=== PATIENT | male | born 1940 | race Caucasian/White ===

== ENCOUNTER 2017-04-21 20:45 | Emergency (ER) | payer OTHER ==
[2017-04-21] MEDS ORDERED: NS 1000 ML 1,000 ML ONE (21:05)
[2017-04-21] MEDS ORDERED: ZOFRAN INJ 4 MG VIAL ONE (21:05)
[2017-04-21] MEDS ORDERED: TORADOL 30 MG VIAL ONE (21:06)
[2017-04-21 21:07] VITALS: BMI 25.6
[2017-04-21] MEDS ORDERED: NS 1000 ML 1,000 ML IV ONE (21:11)
[2017-04-21] MEDS ORDERED: ZOFRAN INJ 4 MG VIAL IVP ONE (21:11)
[2017-04-21] MEDS ORDERED: TORADOL 30 MG VIAL IVP ONE (21:11)
--- NOTE | 2017-04-21 21:31 | DR.GENAD ---
HPI - PCP Primary Care Physician: nfd - HPI Comment HPI Comment: PATIENT WITH LEFT FLANK PAIN WITH NAUSEA, VOMTING. PAIN WORSE THIS EVENING. HISTORY KIDNEY STONES. NO FEVER. - Complaint/Symptoms Chief Complaint Doctors Comments: LEFT FLANK PAIN TIMES ONE DAY. Chief Complaint:: lt flank pain and vomiting since last night pain really got bad 1 hour ago - Nurses notes reviewed Nurses Notes Review: Yes - Source History Provided: Patient - Mode of Arrival Mode of Arrival: Ambulatory - Timing Onset of Chief Complaint: 04/20/17 Came on: Suddenly - Duration Duration: Constant Duration: Days - Severity Severity: Moderate PMH - PMH Past Medical History: Yes Past Medical History: COPD, Hypertension Past Medical History Comment: enlarged prostate Past Surgical History: Yes Past Surgical History Comment: hernia repair hemmorroidectomy - Family History History of Family Medical Conditions: Yes Family Medical History: Diabetes Mellitus, Cancer - Social History Do you use any recreational Drugs:: No Lives With: Family Lives Where: Home - infectious screening In the last 2 months have you had wt loss of >10#?: NO Have you had fever, night sweats or hemotysis?: No Have you traveled outside the country in the last 6 months?: No Isolation: Standard ROS - Review of Systems Constitutional: No Symptoms Reported Eyes: No Symptoms Reported ENTM: No Symptoms Reported Respiratoy: No Symptoms Reported Cardiovascular: No Symptoms Reported Gastrointestinal/Abdominal: No Symptoms Reported Genitourinary: Other (decrease output). negative: Hematuria Neurological: No Symptoms Reported Musculoskeletal: Other (flank paih, lt) Integumentary: No Symptoms Reported Hematologic/Lymphatic: Easy Bruising Endocrine: No Symptoms Reported All Other Systems: Reviewed and Negative PE - Vital Signs Vitals: Temperature 98.6 F Pulse Rate 48 Respiratory Rate 18 Blood Pressure [Left Arm] 176/80 Blood Pressure 162/72 O2 Sat by Pulse Oximetry 100 - General Limitations: No Limitations General Appearance: Alert - Head Head Exam: Normal Inspection - Eyes Eye exam: Normal Appearance - ENT ENT Exam: Normal External Ear Exam External Ear Exam: Normal External Inspection TM/Canal Exam: Bilateral Normal Nose Exam: Normal Nose Exam Mouth Exam: Normal Inspection Throat Exam: Normal Inspection - Neck Neck Exam: Trachea Midline - Chest Chest Inspection: Symmetric Chest Wall Rise - Respiratory Respiratory Exam: Normal Lung Sounds Bilat Respiratory Exam: Bilateral Clear to Auscultation - Cardiovascular Cardiovascular Exam: Regular Rate, Normal Rhythm, Normal Heart Sounds - Abdominal Exam Abdominal Exam: Normal Bowel Sounds, Soft. negative: Tenderness - Extremities Extremities Exam: Normal Inspection - Back Back Exam: (L) CVA Tenderness - Neurologic Neurological Exam: Alert, Oriented X3 - Psychiatric Psychiatric Exam: Normal Affect, Normal Mood - Skin Skin Exam: Normal Color MDM - Additional Information Additional Information Obtained From: Family - Differential Diagnosis Differential Diagnosis: KIDNEY STONE, UTI, MUSCULOSKELETAL PAIN, ATHRITIS Course - Treatment Treatment: SEE ORDERS. - Education/Counseling Education/Counseling: Patient, Education Educated On: Treatment, Diagnosis, Needs for Follow Up ROR - Labs Reviewed Laboratory Results Reviewed?: Yes Result Diagrams: 04/21/17 21:50 04/21/17 21:50 Laboratory: 04/21/17 23:39 Urine,Clean Catch Urine Culture - Final WBC 7.2 X10^3/uL (3.6-10.0) 04/21/17 21:50 RBC 4.43 X10^6/uL (4.7-6.0) L 04/21/17 21:50 Hgb 13.4 g/dL (13.5-18.0) L 04/21/17 21:50 Hct 39.1 % (42.0-54.0) L 04/21/17 21:50 MCV 88.3 fL (80.0-100.0) 04/21/17 21:50 MCH 30.2 pg (27.0-34.0) 04/21/17 21:50 MCHC 34.1 g/dL (33.0-35.0) 04/21/17 21:50 RDW 13.6 % (11.6-16.5) 04/21/17 21:50 Plt Count 186 X10^3/uL (150.0-450.0) 04/21/17 21:50 MPV 8.3 fL (7.4-11.0) 04/21/17 21:50 Neut % 77.0 % (42.0-75.0) H 04/21/17 21:50 Lymph % 12.3 % (21.0-51.0) L 04/21/17 21:50 [place] % 8.4 % (0.0-13.0) 04/21/17 21:50 Eos % 1.3 % (0.9-2.9) 04/21/17 21:50 Baso % 1.0 % (0.2-1.0) 04/21/17 21:50 Neut # 5.6 x10^3/uL (2.2-4.8) H 04/21/17 21:50 Lymph # 0.9 X10^3/uL (1.3-2.9) L 04/21/17 21:50 [place] # 0.6 x10^3/uL (0.3-0.8) 04/21/17 21:50 Eos # 0.1 x10^3/uL (0.0-0.2) 04/21/17 21:50 Baso # 0.1 X10^3/uL (0.0-0.1) 04/21/17 21:50 Absolute Nucleated RBC 0.1 /100WBC 04/21/17 21:50 Sodium 141 mmol/L (136-145) 04/21/17 21:50 Corrected Sodium 142 mmol/L (136-145) 04/21/17 21:50 Potassium 4.3 mmol/L (3.5-5.1) 04/21/17 21:50 Chloride 109 mmol/L (98-107) H 04/21/17 21:50 Carbon Dioxide 27.9 mmol/L (21-32) 04/21/17 21:50 BUN 26 mg/dL (7-18) H 04/21/17 21:50 Creatinine 1.26 mg/dL (0.70-1.30) 04/21/17 21:50 Est GFR (MDRD) Af Amer > 60 (>60) 04/21/17 21:50 Est GFR (MDRD) Non-Af 59 (>60) 04/21/17 21:50 Glucose 126 mg/dL (65-99) H 04/21/17 21:50 Calcium 7.9 mg/dL (8.5-10.1) L 04/21/17 21:50 Corrected Calcium 8.5 mg/dL (8.5-10.1) 04/21/17 21:50 Total Bilirubin 0.40 mg/dL (0.2-1.0) 04/21/17 21:50 AST 28 Units/L (15-37) 04/21/17 21:50 ALT 26 Units/L (12-78) 04/21/17 21:50 Alkaline Phosphatase 39 Units/L (46-116) L 04/21/17 21:50 Total Protein 6.4 g/dL (6.4-8.2) 04/21/17 21:50 Albumin 3.2 g/dL (3.4-5.0) L 04/21/17 21:50 Globulin 3.2 g/dL (2.5-4.5) 04/21/17 21:50 Albumin/Globulin Ratio 1.0 Ratio (1.1-2.1) L 04/21/17 21:50 Specimen Type Clean catch urine 04/21/17 23:39 Urine Color Yellow (YELLOW) 04/21/17 23:39 Urine Appearance Clear (CLEAR) 04/21/17 23:39 Urine pH 5.0 (5.0 - 8.0) 04/21/17 23:39 Ur Specific [place] 1.020 (1.000-1.030) 04/21/17 23:39 Urine Protein 1+ (NEGATIVE) 04/21/17 23:39 Urine Glucose (UA) Negative (NEGATIVE) 04/21/17 23:39 Urine Ketones Negative (NEGATIVE) 04/21/17 23:39 Urine Occult Blood 3+ (NEGATIVE) 04/21/17 23:39 Urine Nitrite Negative (NEGATIVE) 04/21/17 23:39 Urine Bilirubin Negative (NEGATIVE) 04/21/17 23:39 Urine Urobilinogen Normal (NORMAL) 04/21/17 23:39 Ur Leukocyte Esterase 1+ (NEGATIVE) 04/21/17 23:39 Urine RBC 10-15 /HPF (NEGATIVE) 04/21/17 23:39 Urine WBC 6-8 /HPF (NEGATIVE) 04/21/17 23:39 Ur Squamous Epith Cells Rare /HPF (NEGATIVE) 04/21/17 23:39 Urine Bacteria 1+ /HPF (NEGATIVE) 04/21/17 23:39 Urine Mucus Many /HPF (NEGATIVE) 04/21/17 23:39 Ur Culture Indicated? Yes/culture set up 04/21/17 23:39 - XRAY XRAY Interpreted by: Radiologist XRAY Findings: REPORT DISCUSS WITH PATIENT AND FAMILY. - Diagnosis Discharge Problem: Left flank pain, Kidney stone, Parapelvic renal cyst - Discharge Plan Disposition: 01 HOME, SELF-CARE Condition: Stable Prescriptions: Ciprofloxacin HCl [CIPRO 500 MG TAB *] 500 mg PO Q12H #20 tab Hydrocodone-Acet 5 mg/325 mg [[place] 5/325 mg Tab] 1 tab PO Q8H PRN #12 tab PRN Reason: Ondansetron HCl [Zofran Tab 4 mg] 4 mg PO Q8H PRN #12 tab PRN Reason: Nausea/Vomiting - Follow ups/Referrals Follow ups/Referrals: NFD,None [Primary Care Provider] - 2 days - Instructions Instructions: Kidney Stones, [id number], Flank Pain, [id number], Urinary Tract Infection, Adult, [id number], Cholelithiasis Additional Instructions: SEE YOUR UROLOGIST IN AM. RETURN TO ED IF WORSE.
[2017-04-21 21:57] LABS: BASOPHILS # (AUTO) 0.1 X10^3/uL (0.0-0.1); EOSINOPHILS # (AUTO) 0.1 x10^3/uL (0.0-0.2); EOSINOPHILS % (AUTO) 1.3 % (0.9-2.9); HEMATOCRIT 39.1 % (42.0-54.0); HEMOGLOBIN 13.4 g/dL (13.5-18.0); LYMPHOCYTES # (AUTO) 0.9 X10^3/uL (1.3-2.9); LYMPHOCYTES % (AUTO) 12.3 % (21.0-51.0); MEAN CORPUSCULAR HEMOGLOBIN 30.2 pg (27.0-34.0); MEAN CORPUSCULAR HGB CONC 34.1 g/dL (33.0-35.0); MEAN CORPUSCULAR VOLUME 88.3 fL (80.0-100.0); MEAN PLATELET VOLUME 8.3 fL (7.4-11.0); MONOCYTES # (AUTO) 0.6 x10^3/uL (0.3-0.8); MONOCYTES % (AUTO) 8.4 % (0.0-13.0); NEUTROPHILS # (AUTO) 5.6 x10^3/uL (2.2-4.8); PLATELET COUNT 186 X10^3/uL (150.0-450.0); RED BLOOD COUNT 4.43 X10^6/uL (4.7-6.0); RED CELL DISTRIBUTION WIDTH 13.6 % (11.6-16.5); WHITE BLOOD COUNT 7.2 X10^3/uL (3.6-10.0)
[2017-04-21 22:12] LABS: ALANINE AMINOTRANSFERASE 26 Units/L (12-78); ALBUMIN 3.2 g/dL (3.4-5.0); ALKALINE PHOSPHATASE 39 Units/L (46-116); ASPARTATE AMINO TRANSFERASE 28 Units/L (15-37); BLOOD UREA NITROGEN 26 mg/dL (7-18); CALCIUM 7.9 mg/dL (8.5-10.1); CARBON DIOXIDE 27.9 mmol/L (21-32); CHLORIDE 109 mmol/L (98-107); COR CA(FOR HYPOALB) 8.5 mg/dL (8.5-10.1); COR NA(FOR HYPERGLY) 142 mmol/L (136-145); CREATININE 1.26 mg/dL (0.70-1.30); GLUCOSE 126 mg/dL (65-99); SODIUM 141 mmol/L (136-145); TOTAL PROTEIN 6.4 g/dL (6.4-8.2); eGFR BLACK RACES > 60 (>60); eGFR NON BLACK RACES 59 (>60)
--- NOTE | 2017-04-21 22:46 | CT ---
EXAM: CT ABDOMEN AND PELVIS WITHOUT CONTRAST INDICATION: Left flank pain COMPARISION: No priors available for comparison TECHNIQUE: Axial CT examination of the abdomen and pelvis was performed without intravenous contrast. Coronal a nd sagittal reconstructions were created using the axial data. FINDINGS: The lung bases are clear. The liver, spleen, pancreas, and adrenal glands are normal. The right kidn ey appears unremarkable . There are multiple parapelvic cysts on the left . There is mild left hydro nephrosis and hydroureter . No ureteral stone identified. There is cholelithiasis. There is no evide nce of biliary ductal dilatation. The aorta and inferior vena cava are normal in caliber. The bowel loops are nonobstructed. No abnormal mass, lymphadenopathy, or fluid collection. Urinary bladder is normal. The regional skeleton is intact. IMPRESSION: There is cholelithiasis. There is mild left hydronephrosis and hydroureter in multiple parapelvic cy sts in the left kidney. No ureteral stone is identified. Changes may be secondary to a recently pass ed stone. Reported By:
[2017-04-21] MEDS ORDERED: DEMEROL INJ IVP ONE (23:29)
[2017-04-21] MEDS ORDERED: DEMEROL INJ ONE (23:30)
[2017-04-21 23:32] VITALS: BP 176/80
[2017-04-21 23:55] LABS: BILIRUBIN,URINE NEGATIVE (NEGATIVE); BLOOD/HEMOGLOBIN,URINE 3+ (NEGATIVE); GLUCOSE, URINE NEGATIVE (NEGATIVE); KETONES,URINE NEGATIVE (NEGATIVE); LEUKOCYTE ESTERASE ,URINE 1+ (NEGATIVE); NITRITES,URINE NEGATIVE (NEGATIVE); PROTEIN,URINE 1+ (NEGATIVE); UROBILINOGEN,URINE NORMAL (NORMAL)
[2017-04-22 00:07] LABS: APPEARANCE,URINE CLEAR (CLEAR); BACTERIA,URINE 1+ /HPF (NEGATIVE); COLOR,URINE YELLOW (YELLOW); MUCUS,URINE MANY /HPF (NEGATIVE); SQUAMOUS EPITHELIAL CELL,UR RARE /HPF (NEGATIVE)
[2017-04-22] MEDS ORDERED: CIPRO TAB 500 MG PO ONE ×2 (00:17)
== END 2017-04-22 00:28 | disposition home or self-care (01) ==
LOC: ER 21:07
DX: N20.0 Calculus of kidney (principal); N28.1 Cyst of kidney, acquired; R10.84 Generalized abdominal pain; K80.20 Calculus of gallbladder without cholecystitis without obstruction
CPT/HCPCS: 36415; 74176; 80053; 81001; 85025; 87086; 96365; 96374; 96375; 99283; A4222; J1885; J2175; J2405

== ENCOUNTER 2017-08-13 01:14 | Emergency (ER) | payer OTHER ==
[2017-08-13] MEDS ORDERED: ZOFRAN INJ 4 MG VIAL ONE (01:21)
[2017-08-13] MEDS ORDERED: NS 1000 ML 1,000 ML ONE (01:21)
[2017-08-13] MEDS ORDERED: TORADOL 30 MG VIAL ONE (01:21)
[2017-08-13 01:24] VITALS: BMI 26.1
[2017-08-13] MEDS ORDERED: ZOFRAN INJ 4 MG VIAL IVP ONE (01:26)
[2017-08-13] MEDS ORDERED: TORADOL 30 MG VIAL IVP ONE (01:26)
[2017-08-13] MEDS ORDERED: NS 1000 ML 1,000 ML IV ONE (01:33)
--- NOTE | 2017-08-13 01:43 | DR.GENAD ---
HPI - PCP Primary Care Physician: DAVID - Complaint/Symptoms Chief Complaint Doctors Comments: A 76 y/o male presenting with right low flank/ groin pain. This has been present since 5 PM last night. It is a dull, constant achy pain that worsens occassionally. He has associated nausea but no fever. He denies blood in his urine. He thinks this a renal colic occurrence has he has a hx. kidney stones. He had taken a tablet of hydrocodone that was prescribed for him but that is not helping this pain. Chief Complaint:: PT STATES" I HAVE A KIDNEY STONE I'M HURTING RIGHT HERE AND I' M THROWING UP A LITTLE" PT POINTS TO RLQ - Nurses notes reviewed Nurses Notes Review: Yes - Source History Provided: Patient - Mode of Arrival Mode of Arrival: Ambulatory - Timing Onset of Chief Complaint: 08/12/17 Came on: Suddenly PMH - PMH Past Medical History: Yes Past Medical History: COPD, Hypertension, Kidney Stones Past Surgical History: No - Family History History of Family Medical Conditions: Yes Family Medical History: Diabetes Mellitus, Cancer - Social History Do you use any recreational Drugs:: No - infectious screening In the last 2 months have you had wt loss of >10#?: NO Have you had fever, night sweats or hemotysis?: No Have you traveled outside the country in the last 6 months?: No Isolation: Standard ROS - Review of Systems Constitutional: No Symptoms Reported Eyes: No Symptoms Reported ENTM: No Symptoms Reported Respiratoy: No Symptoms Reported Cardiovascular: No Symptoms Reported Gastrointestinal/Abdominal: Nausea, Vomiting, Other (right flank/groin pain) Neurological: No Symptoms Reported Musculoskeletal: No Symptoms Reported Integumentary: No Symptoms Reported Hematologic/Lymphatic: No Symptoms Reported Endocrine: No Symptoms Reported Psychiatric: No Symptoms Reported PE - Vital Signs Vitals: Temperature 97.7 F Pulse Rate 61 Respiratory Rate 18 Blood Pressure [Left Arm] 176/80 Blood Pressure 179/81 O2 Sat by Pulse Oximetry 98 - General Limitations: No Limitations General Appearance: Alert, In No Apparent Distress - Head Head Exam: Normal Inspection - Eyes Eye exam: Normal Appearance - ENT ENT Exam: Normal Exam - Neck Neck Exam: Normal Inspection - Chest Chest Inspection: Normal Inspection - Respiratory Respiratory Exam: Normal Lung Sounds Bilat - Cardiovascular Cardiovascular Exam: Regular Rate, Normal Rhythm - Abdominal Exam Abdominal Exam: Normal Inspection, Normal Bowel Sounds, Soft - Extremities Extremities Exam: Normal Inspection - Back Back Exam: (R) CVA Tenderness - Neurologic Neurological Exam: Alert, Oriented X3, CN II-XII Intact - Psychiatric Psychiatric Exam: Normal Affect, Normal Mood - Skin Skin Exam: Warm, Dry, Intact, Normal Color Course - Reevaluation 1st: Improved - Education/Counseling Education/Counseling: Patient, Family, Education, Counseling Educated On: Treatment, Diagnosis, Prognosis, Needs for Follow Up Education Comments: Plan is to discharge him home with oral analgesics.call your urologist for ROR - Labs Reviewed Result Diagrams: 08/13/17 01:52 08/13/17 01:52 Laboratory: WBC 8.4 X10^3/uL (3.6-10.0) 08/13/17 01:52 RBC 4.42 X10^6/uL (4.7-6.0) L 08/13/17 01:52 Hgb 13.2 g/dL (13.5-18.0) L 08/13/17 01:52 Hct 39.2 % (42.0-54.0) L 08/13/17 01:52 MCV 88.9 fL (80.0-100.0) 08/13/17 01:52 MCH 30.0 pg (27.0-34.0) 08/13/17 01:52 MCHC 33.7 g/dL (33.0-35.0) 08/13/17 01:52 RDW 13.9 % (11.6-16.5) 08/13/17 01:52 Plt Count 172 X10^3/uL (150.0-450.0) 08/13/17 01:52 MPV 8.7 fL (7.4-11.0) 08/13/17 01:52 Neut % 85.9 % (42.0-75.0) H 08/13/17 01:52 Lymph % 7.4 % (21.0-51.0) L 08/13/17 01:52 [place] % 5.8 % (0.0-13.0) 08/13/17 01:52 Eos % 0.2 % (0.9-2.9) L 08/13/17 01:52 Baso % 0.7 % (0.2-1.0) 08/13/17 01:52 Neut # 7.2 x10^3/uL (2.2-4.8) H 08/13/17 01:52 Lymph # 0.6 X10^3/uL (1.3-2.9) L 08/13/17 01:52 [place] # 0.5 x10^3/uL (0.3-0.8) 08/13/17 01:52 Eos # 0.0 x10^3/uL (0.0-0.2) 08/13/17 01:52 Baso # 0.1 X10^3/uL (0.0-0.1) 08/13/17 01:52 Absolute Nucleated RBC 0.1 /100WBC 08/13/17 01:52 Sodium 139 mmol/L (136-145) 08/13/17 01:52 Corrected Sodium 140 mmol/L (136-145) 08/13/17 01:52 Potassium 4.2 mmol/L (3.5-5.1) 08/13/17 01:52 Chloride 106 mmol/L (98-107) 08/13/17 01:52 Carbon Dioxide 25.7 mmol/L (21-32) 08/13/17 01:52 BUN 36 mg/dL (7-18) H 08/13/17 01:52 Creatinine 1.26 mg/dL (0.70-1.30) 08/13/17 01:52 Est GFR (MDRD) Af Amer > 60 (>60) 08/13/17 01:52 Est GFR (MDRD) Non-Af 59 (>60) 08/13/17 01:52 Glucose 125 mg/dL (65-99) H 08/13/17 01:52 Calcium 8.2 mg/dL (8.5-10.1) L 08/13/17 01:52 - XRAY XRAY Interpreted by: Radiologist (CT Scan abd/Pelvis w/o contrast: An approximate 4 mm stone within the distal right ureter causing moderate right hydronephosis) - Diagnosis Discharge Problem: Ureteral calculus, right - Discharge Plan Condition: Stable - Follow ups/Referrals Follow ups/Referrals: NFD,None [Primary Care Provider] - 3 days - Instructions
[2017-08-13 02:02] LABS: BASOPHILS # (AUTO) 0.1 X10^3/uL (0.0-0.1); BASOPHILS % (AUTO) 0.7 % (0.2-1.0); EOSINOPHILS % (AUTO) 0.2 % (0.9-2.9); HEMATOCRIT 39.2 % (42.0-54.0); HEMOGLOBIN 13.2 g/dL (13.5-18.0); LYMPHOCYTES # (AUTO) 0.6 X10^3/uL (1.3-2.9); LYMPHOCYTES % (AUTO) 7.4 % (21.0-51.0); MEAN CORPUSCULAR HGB CONC 33.7 g/dL (33.0-35.0); MEAN CORPUSCULAR VOLUME 88.9 fL (80.0-100.0); MEAN PLATELET VOLUME 8.7 fL (7.4-11.0); MONOCYTES # (AUTO) 0.5 x10^3/uL (0.3-0.8); MONOCYTES % (AUTO) 5.8 % (0.0-13.0); NEUTROPHILS # (AUTO) 7.2 x10^3/uL (2.2-4.8); NEUTROPHILS % (AUTO) 85.9 % (42.0-75.0); PLATELET COUNT 172 X10^3/uL (150.0-450.0); RED BLOOD COUNT 4.42 X10^6/uL (4.7-6.0); RED CELL DISTRIBUTION WIDTH 13.9 % (11.6-16.5); WHITE BLOOD COUNT 8.4 X10^3/uL (3.6-10.0)
[2017-08-13 02:04] LABS: BLOOD UREA NITROGEN 36 mg/dL (7-18); CALCIUM 8.2 mg/dL (8.5-10.1); CARBON DIOXIDE 25.7 mmol/L (21-32); CHLORIDE 106 mmol/L (98-107); COR NA(FOR HYPERGLY) 140 mmol/L (136-145); CREATININE 1.26 mg/dL (0.70-1.30); SODIUM 139 mmol/L (136-145); eGFR BLACK RACES > 60 (>60); eGFR NON BLACK RACES 59 (>60)
--- NOTE | 2017-08-13 02:54 | CT ---
CT abdomen and pelvis without contrast Indication: Right flank pain Comparison: 04/21/2017 Technique: Multiple axial images of the abdomen and pelvis were obtained from the lung bases to the pubic symphy sis without the administration of IV contrast. Findings: The lung bases are clear. Round hypoattenuating lesion within the medial heaptic segment on axial alice ge 19 is consistent with a cyst. There is a suspected additional smaller cyst within the lateral hepa tic segment on axial image 25. Layering stones are noted within a nondistended gallbladder. Bile duct s are normal in caliber. The spleen and pancreas are unremarkable. No change in right adrenal gland a denoma. Left adrenal gland is unremarkable. The right kidney demonstrates moderate hydronephrosis sec ondary to an approximate 4 mm stone within distal right ureter on axial image 85. More periureteral s tranding is noted. There is a punctate nonobstructing stone noted within the midpole the right kidney . The left kidney demonstrates no nephrolithiasis, hydronephrosis or mass. Large parapelvic cyst is n oted within the lower pole the left kidney. Upper GI tract is without evidence of mass or obstruction . Urinary bladder is normal. Prostate gland is enlarged with central dystrophic calcification. The re ctum and colon are unremarkable. No pelvic free fluid or adenopathy. Review of bone windows demonstra urbano no acute osseous abnormality. A small fat containing paraumbilical hernia. Impression: 1.An approximate 4 mm stone within distal right ureter causes moderate right hydronephrosis. 2. Punctate nonobstructing stone within the midpole the right kidney. 3. Stable right adrenal gland adenoma. 4. Large parapelvic cyst within the left kidney without nephrolithiasis or hydronephrosis. 5. Suspected cyst within the medial and lateral hepatic segments. 6. Refer to above for other incidental findings. Reported By:
[2017-08-13 03:56] VITALS: BP 156/65
== END 2017-08-13 03:56 | disposition home or self-care (01) ==
LOC: ER 01:14
DX: N20.1 Calculus of ureter (principal); R10.84 Generalized abdominal pain
CPT/HCPCS: 36415; 74176; 80048; 85025; 96365; 96374; 96375; 99283; A4222; J1885; J2405